=== PATIENT | female | born 1955 | race Caucasian/White ===

== ENCOUNTER → 2016-12-26 12:59 | Outpatient (CLI) | payer OTHER, SELFPAY ==
[2016-12-26 14:06] LABS: Anion Gap 13 (5-15); BUN 116 mg/dL (7-18); BUN/Creat Ratio 79.5 RATIO (10-20); Calcium,Total 10.6 mg/dL (8.5-10.1); Chloride 97 mmol/L (98-107); Creatinine, Serum 1.46 mg/dL (0.55-1.02); EST Glomerular Filtration Rate 39 mL/min (>60); Est Glom Filt Rate - Afr Amer 47 mL/min (>60); Glucose 120 mg/dL (70-110); Potassium 6.7 mmol/L (3.5-5.1); Sodium Level 135 mmol/L (136-145)
== END ==
DX: R69 Illness, unspecified (principal)
CPT/HCPCS: 80048